=== PATIENT | male | born 1960 | race American Indian/Alaskan Native ===

== ENCOUNTER 2017-01-28 14:49 | Emergency (ER) | payer SELFPAY ==
[~2017-01-28] VITALS: Ht 172.7 cm; Wt 84.1 kg
[2017-01-28 15:40] LABS: ASPARTATE AMINO TRANSFERASE 76 U/L (15-37); BLOOD UREA NITROGEN 6 mg/dL (7-18)
[2017-01-28 15:45] LABS: IS PT STATUS REG ER OR PRE ER? YES
[2017-01-28 16:17] VITALS: BP 127/84
== END 2017-01-28 16:20 | disposition home or self-care (01) ==
LOC: ED 16:10
DX: R07.89 Other chest pain (principal)
CPT/HCPCS: 36415; 71010; 80053; 84484; 85025; 93005; 99285